=== PATIENT | female | born 1995 | race Hispanic/Latino ===

== ENCOUNTER 2017-10-15 15:27 | Emergency (ER) | payer OTHER, MEDICAID, SELFPAY ==
[2017-10-15 15:33] VITALS: BP 132/77; PULSE 82; RESP 20; TEMP 37; O2SAT 99
--- NOTE | 2017-10-15 15:34 | DI.RAD.S_ITS ---
PROCEDURE: XR CHEST 2V INDICATIONS: anterior chest pain TECHNIQUE: 2 views of the chest were acquired. COMPARISON: None. FINDINGS: Surgical changes and devices: None. Lungs and pleura: No pleural effusions or pneumothorax. Lungs are clear. Mediastinum: Mediastinal contours are normal. Heart size is normal. Bones and chest wall: No suspicious bony abnormalities. Soft tissues appear unremarkable. IMPRESSION: No acute cardiopulmonary pathology. Dictated by: Julio Carpenter M.D. on 10/15/2017 at 15:58 Approved by: Julio Carpenter M.D. on 10/15/2017 at 15:59
--- NOTE | 2017-10-15 15:55 | ED.CHESTPAIN ---
HPI - Chest Pain General Chief Complaint: Chest Pain Stated Complaint: CHEST DISCOMFORT Time Seen by Provider: 10/15/17 15:41 Source: patient and family ( sister) Mode of arrival: ambulatory Limitations: no limitations History of Present Illness HPI narrative: This is a 21-year-old female comes to the emergency department with complaint of chest pain in the left upper chest that some has found around for about a week. She states that it goes around to the back. She states that she noticed a little bit of wheezing last night or squeaking when she laid down for bed. She states otherwise Um she is not having much pain at this time. It sort of feels like someone is poking her. She states that she gets irritated or annoyed with someone that seems to exacerbate it. No fevers, no cold cough or congestion symptoms. No shortness of breath or dyspnea. She is not having any issues with exertion and dyspnea. . She is not on any contraceptives or had any long-term travel. MD complaint: chest pain Onset (ago): day(s) Duration: intermittent Severity: mild Quality: other Pain radiation: back Relieving factors: rest Exacerbating factors: other (being irritated.) Treatments prior to arrival chest pain: none Related Data On Oral Contraceptives: No Review of Systems Review of Systems All systems reviewed & are unremarkable except as noted in HPI and below Constitutional Denies chills, Denies fatigue, Denies fever(s), Denies lethargy and Denies weakness Cardiovascular Reports chest pain, Denies diaphoresis, Denies syncope, Denies rapid heart rate, Denies irregular heart rhythm, Denies lightheadedness, Denies radiating jaw, neck or arm pain, Denies palpitations, Denies dyspnea and Denies orthopnea Respiratory Denies change in phlegm color, Denies chest congestion, Denies cough, Denies hemoptysis, Denies dyspnea and Reports other (squeaking with breathing last night.) Gastrointestinal Gastrointestinal: Denies abdominal pain, Denies change in bowel habits, Denies diarrhea, Denies nausea and Denies vomiting Genitourinary Denies hematuria, Denies flank pain, Denies urinary incontinence and Denies urinary urgency Integumentary/Breasts Denies rash Neurologic Denies syncope and Denies weakness Endocrine Denies fatigue and Denies palpitations PFSH Family History Mother Diabetes mellitus Thyroid disease Social History Smoking Status: Never smoker alcohol intake: never substance use type: does not use Exam Initial Vital Signs Initial Vital Signs: Vital Signs Temperature 98.6 F 10/15/17 15:33 Pulse Rate 82 10/15/17 15:33 Respiratory Rate 20 10/15/17 15:33 Blood Pressure 132/77 10/15/17 15:33 Pulse Oximetry 99 10/15/17 15:33 Const General: cooperative, healthy appearing, comfortable, well developed and well groomed Nutritional Appearance: well nourished Orientation: alert, awake, oriented x3 and not confused HENMT Head: normal to inspection, normocephalic and atraumatic Nose: external nose normal Face and sinus: normal facial exam Mouth: mucous membranes abnormal Neck Neck: normal visual inspection, trachea midline, No lymphadenopathy, No midline deformity and No JVD Lymphatic: No lymphedema Chest Chest: normal inspection of the chest Resp Effort & Inspection: normal respiratory effort, able to speak in complete sentences, no respiratory distress and no use of accessory muscles Auscultation: clear to auscultation bilaterally, no rales, no rhonchi and no wheezes Cardio Rate: regular rate Rhythm: regular rhythm Heart Sounds: no click, no gallops, no murmurs and no rubs Pulses: normal peripheral pulses GI Inspection: non-distended Palpation: soft, no hepatosplenomegaly, No guarding, No pulsatile mass and No tender Auscultation: normal bowel sounds Skin General: No no rashes or lesions noted and dry skin Extrem Right lower extremity: no edema Left lower extremity: no edema Scores Wells' Criteria for PE Clinical signs and symptoms of PE: No PE is #1 Dx or equally likely: No Heart rate > 100: No Immobilization at least 3 days or surg in previous 4 weeks: No History of PE or DVT: No Hemoptysis: No Malignancy w/Treatment within 6 months or palliative: No Wells' PE Score total: 0 Course Orders Ordered: ED Orders 10/15/17 15:34 Chest [XR chest 2V] Stat 10/15/17 15:35 EKG-12 Lead Stat Vital Signs - 8 hr 10/15/17 15:33 10/15/17 16:31 Temperature 98.6 F Pulse Rate 82 60 Respiratory Rate 20 15 Blood Pressure 132/77 Blood Pressure [Left Arm] 110/68 Pulse Oximetry 99 100 MDM - Chest Pain Differential Diagnosis Likely pneumothorax, atypical chest pain, costochondritis, chest pain and other (reactive airway) Imaging Data Chest x-ray: Radiologist's impression: Patient: Margret Stiles SMR#: [id number] : 1995Acct:[id number] Age/Sex: 21 / FDate of Service: 10/15/17 Loc: ED Accession Number: [id number] Procedure: XR chest 2V Ordering Provider: Augusta Norris D.O. PROCEDURE: XR CHEST 2V INDICATIONS: anterior chest pain TECHNIQUE: 2 views of the chest were acquired. COMPARISON: None. FINDINGS: Surgical changes and devices: None. Lungs and pleura: No pleural effusions or pneumothorax. Lungs are clear. Mediastinum: Mediastinal contours are normal. Heart size is normal. Bones and chest wall: No suspicious bony abnormalities. Soft tissues appear unremarkable. IMPRESSION: No acute cardiopulmonary pathology. Dictated by: Julio Carpenter M.D. on 10/15/2017 at 15:58 Approved by: Julio Carpenter M.D. on 10/15/2017 at 15:59 ECG Data Attestation: I personally reviewed and interpreted this ECG as follows: Prior ECG tracings: not available for review Interpretation: Sinus rhythm no ST ST elevation or depression. Rate of 71, IA 132, QRS of 93 and QTC of 374. [facility] Narrative Medical decision making narrative: a 21-year-old female who comes in with complaint of mild chest pain patient has not been having any dyspnea or exertional symptoms. EKG does not show any acute findings. Chest x-ray was evaluated and also does not show any acute findings. Patient defers any pain medication. She has family history of diabetes thyroid issues. She does not have any current risk factors for PE and her PERC score is 0. Patient did have what sounded like possibly some reactive airway with some wheezing yesterday but has not had any since is not having any shortness of breath. She does not have any changes such as pneumothorax or signs of infection on her chest x-ray. EKG shows no acute changes in her risk for cardiac event is quite low based on her risk factors. Discharge Plan Departure Patient Disposition: Home Clinical Impression: Atypical chest pain Discharge Date/Time: 10/15/17 16:38 Interventions: ED Discharge Assessment Last Done: 10/15/17 16:38 Instructions: DI for Atypical Chest Pain Activity Restrictions/Additional Instructions: Follow-up with primary care the next 3-5 days if your symptoms are not improving. You may take ibuprofen up to 600 mg every 6 hr or Tylenol 1000 mg every 8 hr as needed for pain. Return to the emergency department if you're having increasing chest pain, difficulty with breathing or syncope or passing out.
--- NOTE | 2017-10-15 16:01 | ED_ITS ---
HPI - Chest Pain General Chief Complaint: Chest Pain Stated Complaint: CHEST DISCOMFORT Time Seen by Provider: 10/15/17 15:41 Source: patient and family ( sister) Mode of arrival: ambulatory Limitations: no limitations History of Present Illness HPI narrative: This is a 21-year-old female comes to the emergency department with complaint of chest pain in the left upper chest that some has found around for about a week. She states that it goes around to the back. She states that she noticed a little bit of wheezing last night or squeaking when she laid down for bed. She states otherwise Um she is not having much pain at this time. It sort of feels like someone is poking her. She states that she gets irritated or annoyed with someone that seems to exacerbate it. No fevers, no cold cough or congestion symptoms. No shortness of breath or dyspnea. She is not having any issues with exertion and dyspnea. . She is not on any contraceptives or had any long-term travel. MD complaint: chest pain Onset (ago): day(s) Duration: intermittent Severity: mild Quality: other Pain radiation: back Relieving factors: rest Exacerbating factors: other (being irritated.) Treatments prior to arrival chest pain: none Related Data On Oral Contraceptives: No Review of Systems Review of Systems All systems reviewed & are unremarkable except as noted in HPI and below Constitutional Denies chills, Denies fatigue, Denies fever(s), Denies lethargy and Denies weakness Cardiovascular Reports chest pain, Denies diaphoresis, Denies syncope, Denies rapid heart rate , Denies irregular heart rhythm, Denies lightheadedness, Denies radiating jaw, neck or arm pain, Denies palpitations, Denies dyspnea and Denies orthopnea Respiratory Denies change in phlegm color, Denies chest congestion, Denies cough, Denies hemoptysis, Denies dyspnea and Reports other (squeaking with breathing last night.) Gastrointestinal Gastrointestinal: Denies abdominal pain, Denies change in bowel habits, Denies diarrhea, Denies nausea and Denies vomiting Genitourinary Denies hematuria, Denies flank pain, Denies urinary incontinence and Denies urinary urgency Integumentary/Breasts Denies rash Neurologic Denies syncope and Denies weakness Endocrine Denies fatigue and Denies palpitations PFSH Family History Mother Diabetes mellitus Thyroid disease Social History Smoking Status: Never smoker alcohol intake: never substance use type: does not use Exam Initial Vital Signs Initial Vital Signs: Vital Signs Temperature 98.6 F 10/15/17 15:33 Pulse Rate 82 10/15/17 15:33 Respiratory Rate 20 10/15/17 15:33 Blood Pressure 132/77 10/15/17 15:33 Pulse Oximetry 99 10/15/17 15:33 Const General: cooperative, healthy appearing, comfortable, well developed and well groomed Nutritional Appearance: well nourished Orientation: alert, awake, oriented x3 and not confused HENMT Head: normal to inspection, normocephalic and atraumatic Nose: external nose normal Face and sinus: normal facial exam Mouth: mucous membranes abnormal Neck Neck: normal visual inspection, trachea midline, No lymphadenopathy, No midline deformity and No JVD Lymphatic: No lymphedema Chest Chest: normal inspection of the chest Resp Effort & Inspection: normal respiratory effort, able to speak in complete sentences, no respiratory distress and no use of accessory muscles Auscultation: clear to auscultation bilaterally, no rales, no rhonchi and no wheezes Cardio Rate: regular rate Rhythm: regular rhythm Heart Sounds: no click, no gallops, no murmurs and no rubs Pulses: normal peripheral pulses GI Inspection: non-distended Palpation: soft, no hepatosplenomegaly, No guarding, No pulsatile mass and No tender Auscultation: normal bowel sounds Skin General: No no rashes or lesions noted and dry skin Extrem Right lower extremity: no edema Left lower extremity: no edema Scores Wells' Criteria for PE Clinical signs and symptoms of PE: No PE is #1 Dx or equally likely: No Heart rate > 100: No Immobilization at least 3 days or surg in previous 4 weeks: No History of PE or DVT: No Hemoptysis: No Malignancy w/Treatment within 6 months or palliative: No Wells' PE Score total: 0 Course Orders Ordered: ED Orders 10/15/17 15:34 Chest [XR chest 2V] Stat 10/15/17 15:35 EKG-12 Lead Stat Vital Signs - 8 hr 10/15/17 15:33 10/15/17 16:31 Temperature 98.6 F Pulse Rate 82 60 Respiratory Rate 20 15 Blood Pressure 132/77 Blood Pressure [Left Arm] 110/68 Pulse Oximetry 99 100 MDM - Chest Pain Differential Diagnosis Likely pneumothorax, atypical chest pain, costochondritis, chest pain and other (reactive airway) Imaging Data Chest x-ray: Radiologist's impression: Patient: Margret Stiles SMR#: [id number] : 1995Acct:[id number] Age/Sex: 21 / FDate of Service: 10/15/17 Loc: ED Accession Number: [id number] Procedure: XR chest 2V Ordering Provider: Augusta Norris D.O. PROCEDURE: XR CHEST 2V INDICATIONS: anterior chest pain TECHNIQUE: 2 views of the chest were acquired. COMPARISON: None. FINDINGS: Surgical changes and devices: None. Lungs and pleura: No pleural effusions or pneumothorax. Lungs are clear. Mediastinum: Mediastinal contours are normal. Heart size is normal. Bones and chest wall: No suspicious bony abnormalities. Soft tissues appear unremarkable. IMPRESSION: No acute cardiopulmonary pathology. Dictated by: Julio Carpenter M.D. on 10/15/2017 at 15:58 Approved by: Julio Carpenter M.D. on 10/15/2017 at 15:59 ECG Data Attestation: I personally reviewed and interpreted this ECG as follows: Prior ECG tracings: not available for review Interpretation: Sinus rhythm no ST ST elevation or depression. Rate of 71, ID 132, QRS of 93 and QTC of 374. [facility] Narrative Medical decision making narrative: a 21-year-old female who comes in with complaint of mild chest pain patient has not been having any dyspnea or exertional symptoms. EKG does not show any acute findings. Chest x-ray was evaluated and also does not show any acute findings. Patient defers any pain medication. She has family history of diabetes thyroid issues. She does not have any current risk factors for PE and her PERC score is 0. Patient did have what sounded like possibly some reactive airway with some wheezing yesterday but has not had any since is not having any shortness of breath. She does not have any changes such as pneumothorax or signs of infection on her chest x-ray. EKG shows no acute changes in her risk for cardiac event is quite low based on her risk factors. Discharge Plan Departure Patient Disposition: Home Clinical Impression: Atypical chest pain Discharge Date/Time: 10/15/17 16:38 Interventions: ED Discharge Assessment Last Done: 10/15/17 16:38 Instructions: DI for Atypical Chest Pain Activity Restrictions/Additional Instructions: Follow-up with primary care the next 3-5 days if your symptoms are not improving. You may take ibuprofen up to 600 mg every 6 hr or Tylenol 1000 mg every 8 hr as needed for pain. Return to the emergency department if you're having increasing chest pain, difficulty with breathing or syncope or passing out.
[2017-10-15 16:31] VITALS: BP 110/68; PULSE 60; RESP 15; O2SAT 100
== END 2017-10-15 16:38 | disposition home or self-care (01) ==
PROVIDERS: Emergency Provider Emergency Medicine
DX: R07.89 Other chest pain (principal)
CPT/HCPCS: 71046; 93005; 93010; 99282; 99283

== ENCOUNTER 2018-09-22 10:15 | Emergency (ER) | payer OTHER, MEDICAID, SELFPAY ==
[2018-09-22 10:26] VITALS: BP 134/88; PULSE 75; RESP 13; TEMP 37; O2SAT 98
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
[2018-09-22] MEDS: TET,DIPH,PERTUSS(ACELL),VAC/PF 0.5 ML SYRINGE IM (10:33)
== END 2018-09-22 10:42 | disposition home or self-care (01) ==
PROVIDERS: Emergency Provider Emergency Medicine
DX: T23.002A Burn of unspecified degree of left hand, unspecified site, initial encounter (principal); X10.0XXA Contact with hot drinks, initial encounter; Y99.0 Civilian activity done for income or pay; Z23 Encounter for immunization
CPT/HCPCS: 90471; 99282; 99283; 90715

== ENCOUNTER 2020-07-29 20:53 | Emergency (ER) | payer OTHER, MEDICAID, SELFPAY ==
[2020-07-29] VITALS (8 sets, daily range): BP systolic 100–128; BP diastolic 59–73; PULSE 62–78; RESP 13–25; TEMP 36.2; O2SAT 98–100; BMI 42.5
--- NOTE | 2020-07-29 21:35 | DI.RAD.S_ITS ---
PROCEDURE: XR CHEST 2V INDICATIONS: intermittnnt chest pain TECHNIQUE: 2 views of the chest were acquired. COMPARISON: [facility], , XR CHEST 2V, 10/15/2017, 15:13. FINDINGS: Surgical changes and devices: None. Lungs and pleura: Lungs are clear. No pleural effusions or pneumothorax. Mediastinum: Mediastinal contours are normal. Heart size is normal. Bones and chest wall: No suspicious bony abnormalities. Soft tissues appear unremarkable. IMPRESSION: No acute disease. Dictated by: Angus Barbour M.D. on 07/29/2020 at 22:06 Approved by: Angus Barbour M.D. on 07/29/2020 at 22:06
--- NOTE | 2020-07-29 23:17 | ED.CHESTPAIN ---
HPI - Chest Pain General Chief Complaint: Chest Pain Stated Complaint: chest tightness Time Seen by Provider: 07/29/20 23:08 Source: patient Mode of arrival: Ambulatory Limitations: no limitations History of Present Illness HPI narrative: Patient is a 24-year-old female who presents with chest discomfort off and on throughout the day. 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 She started noticing some chest discomfort which was worse with movement and deep breaths. She denies any shortness of breath. She can not pinpoint exactly where it is. She has not taken anything for pain. She denies any fever chills or cough. She has not gotten her COVID vaccine but is also concerned about that. She denies any shortness of breath or recent travel MD complaint: chest pain Onset (ago): day(s) (1) Duration: intermittent Onset: during rest and during exertion Relieving factors: rest, leaning forward and remaining still Exacerbating factors: inspiration, palpation and movement Related Data Allergies Allergy/AdvReac Type Severity Reaction Status Date / Time No Known Drug Allergies Allergy Verified 09/22/18 10:30 Review of Systems Review of Systems Narrative: GENERAL: Denies chills, fatigue, malaise, fever, sweats, travel HEENT: Denies sinus pain, ear pain, sore throat, difficulty swallowing, neck pain RESPIRATORY: Denies dyspnea, cough, wheezing, hemoptysis, sputum. CARDIOVASCULAR: See HPI GASTROINTESTINAL: Denies nausea, vomiting, abdominal pain, diarrhea, constipation, melena. : Denies dysuria, frequency, incontinence, hematuria, urinary retention, flank pain. MUSCULOSKELETAL: Denies weakness, joint pain, or bony pain SKIN: No rash, no erythema, no pruritus NEUROLOGIC: Denies weakness, dizziness, headache, numbness, change in speech, confusion PSYCHIATRIC: No concerning psychosocial issues. 12 point review of systems is negative except for those stated above and HPI Patient History Family History Mother Diabetes mellitus Thyroid disease Social History Smoking Status: Never smoker alcohol intake: never substance use type: does not use Smoking Status: Never smoker Substance Use Type: does not use Exam Initial Vital Signs Initial Vital Signs: Vital Signs Temperature 97.2 F L 07/29/20 20:56 Pulse Rate 78 07/29/20 20:56 Respiratory Rate 17 07/29/20 20:56 Blood Pressure 128/73 07/29/20 20:56 Pulse Oximetry 100 07/29/20 20:56 GENERAL: Alert well-appearing 24-year-old female with BMI 42 and in no acute distress. HEENT: Head atraumatic,EOMI, pupils reactive, face symmetric, moist mucous membranes CARDIOVASCULAR: Regular rate and rhythm without murmurs, rubs or gallops. Mild pain and discomfort with palpation to chest difficult to pinpoint 1 specific area RESPIRATORY: Breath sounds equal bilaterally, no wheezes rales or rhonchi. ABDOMEN: Soft, nontender. Normoactive bowel sounds all 4 quadrants. No guarding or rebound. EXTREMITIES: Normal range of motion, no clubbing or edema. Neurovascularly intact NEUROLOGICAL: Alert and oriented x4.Normal gait and speech. Cranial nerves II through XII grossly intact. SKIN: Warm, dry, no laceration, no petechiae, no rashes or lesions. Scores PERC Score Age greater than or equal to 50 years: No Heart rate greater than or equal to 100 bpm: No Room Air O2 Sat less than 95%: No Unilateral leg swelling: No Recent trauma or surgery: No Hemoptysis: No Prior PE or DVT: No Hormone Use: No Total PERC Score: 0 Wells' Criteria for PE Clinical signs and symptoms of DVT: No PE is #1 Dx or equally likely: No Heart rate > 100: No Immobilization at least 3 days or surg in previous 4 weeks: No History of PE or DVT: No Hemoptysis: No Malignancy w/Treatment within 6 months or palliative: No Wells' PE Score total: 0 Course Orders Ordered: ED Orders 07/29/20 21:35 XR chest 2V Stat 07/29/20 23:17 COVID19 -Nasal swab/Pre-Proc Stat Discontinued Medications Ibuprofen (Ibuprofen 400 Mg Tablet) 800 mg PO NOW ONE Stop: 07/29/20 23:17 Last Admin: 07/29/20 23:21 Dose: 800 mg Documented by: HUSSEIN Vital Signs Vital signs: Vital Signs - 8 hr 07/29/20 21:18 07/29/20 21:20 07/29/20 21:30 Pulse Rate 71 66 66 Respiratory Rate 18 24 13 Blood Pressure 100/66 100/66 Pulse Oximetry 98 98 98 07/29/20 22:00 07/29/20 22:30 07/29/20 23:00 Pulse Rate 69 65 62 Respiratory Rate 25 H 24 17 Blood Pressure 105/59 L Pulse Oximetry 100 100 99 07/29/20 23:30 07/30/20 00:00 Pulse Rate 64 68 Respiratory Rate 23 19 Blood Pressure Pulse Oximetry 99 98 MDM - Chest Pain Lab Data Attestation: I reviewed the patient's lab results. Labs: Lab Results 07/29/20 Range/Units 23:17 SARS-CoV-2 (PCR) Negative (Negative) Imaging Data Chest x-ray: Radiologist's Impression: PROCEDURE: XR CHEST 2V INDICATIONS: intermittnnt chest pain TECHNIQUE: 2 views of the chest were acquired. COMPARISON: [facility], , XR CHEST 2V, 10/15/2017, 15:13. FINDINGS: Surgical changes and devices: None. Lungs and pleura: Lungs are clear. No pleural effusions or pneumothorax. Mediastinum: Mediastinal contours are normal. Heart size is normal. Bones and chest wall: No suspicious bony abnormalities. Soft tissues appear unremarkable. IMPRESSION: No acute disease. Dictated by: Angus Barbour M.D. on 07/29/2020 at 22:06 ECG Data Attestation: I personally reviewed and interpreted this ECG as follows: Prior ECG tracings: available for review Interpretation: Normal sinus rhythm rate 60 8 p.r. interval 136 QRS [address] changes or T-wave inversions similar to previous EKG [facility] Narrative Medical decision making narrative: Patient's pain is been ongoing all status symptoms worth with movement and breathing. Chest x-ray and EKG are within normal limits. No sign of pericarditis on EKG. Possible costochondritis but it is not pinpoint. Her symptoms are not consistent with cardiac etiology and she is low risk for pulmonary embolism. She is given Motrin in the emergency department and is feeling slightly better Discharge Plan Departure Patient Disposition: Home Clinical Impression: Atypical chest pain Instructions: DI for Atypical Chest Pain Activity Restrictions/Additional Instructions: *You have been diagnosed with atypical chest pain *What to do: At this time unclear what is causing your chest discomfort. However I recommend getting some sleep is and resting. I suspect he may have pulled or done something. He may also try heat or ice. Your COVID is negative *Continue to take medications as directed Ibuprofen 600 mg every 6 hours if needed for [id number] pain *Follow up with your primary care provider in 2-3 days *Return to ER if you should have increasing chest pain, shortness of breath or any new, worsening or concerning symptoms
[2020-07-29] MEDS: IBUPROFEN 400 MG TABLET 800 MG PO (23:21)
[2020-07-29 23:39] LABS: COVID19 -Nasal RAPID Negative (Negative)
[2020-07-30] VITALS: PULSE 68; RESP 19; O2SAT 98
== END 2020-07-30 00:08 | disposition home or self-care (01) ==
PROVIDERS: Emergency Provider Emergency Medicine
DX: R07.89 Other chest pain (principal); Z20.822 Contact with and (suspected) exposure to COVID-19
CPT/HCPCS: 71046; 87635; 93005; 93010; 99284; C9803

== ENCOUNTER 2020-11-08 20:21 | Emergency (ER) | payer OTHER, MEDICAID, SELFPAY ==
[2020-11-08 20:49] VITALS: BP 143/78; PULSE 96; RESP 17; TEMP 36.6; O2SAT 99
--- NOTE | 2020-11-08 20:53 | DI.RAD.S_ITS ---
PROCEDURE: XR HAND LT MIN 3V INDICATIONS: injury TECHNIQUE: 3 views of the hand(s) acquired. COMPARISON: None. FINDINGS: Bones: No fractures or dislocations. Carpal bones are normally aligned. No suspicious bony lesions. Soft tissues: No suspicious soft tissue calcifications. IMPRESSION: No evidence acute bony abnormality of the left hand. If clinical suspicion and/or symptoms persist, further assessment with repeat plain films, or advanced imaging (e.g., CT, MRI, or bone scan) may be helpful for further assessment. Dictated by: Thom Holm M.D. on 11/08/2020 at 21:30 Approved by: Thom Holm M.D. on 11/08/2020 at 21:31
--- NOTE | 2020-11-09 02:44 | ED_ITS ---
HPI - Extremity Injury (Upper) General Chief Complaint: Extremity Injury, Upper Stated Complaint: LEFT HAND MIDDLE FINGER Time Seen by Provider: 11/09/20 02:42 Source: patient Mode of arrival: Ambulatory Limitations: no limitations History of Present Illness HPI narrative: This is a 24-year-old female comes with complaint of pain of the middle interphalangeal joint on her middle finger on her left hand. Patient s tates about 2 weeks she was popping her fingers hyperextending them which she had pain at that location. She has continued to have an achy pain at that joint which is localized area. She has not had any warmth, erythema swelling noted she has full range of motion but does have some increased discomfort with movement. She states if she squeezes area the pain will radiate into her finger but is not normally. She denies any other injuries. She has not had similar symptoms in the past. She has not had any other injuries. She was recently started on Zoloft and has been taking that. She does not take any other daily medications denies any other medical issues. No allergies to medications. She has not been taking any ibuprofen or Tylenol because she was concerned it might interact with her medication. She is right-hand dominant. Related Data Home Medications Medication Instructions Recorded Confirmed sertraline 100 mg tablet 100 mg PO DAILY 11/08/20 11/08/20 Allergies Allergy/AdvReac Type Severity Reaction Status Date / Time No Known Drug Allergies Allergy Verified 09/22/18 10:30 Review of Systems Review of Systems ROS Unobtainable: All systems reviewed & are unremarkable except as noted in HPI and below Patient History Family History Mother Diabetes mellitus Thyroid disease Social History Smoking Status: Never smoker alcohol intake: never substance use type: does not use Smoking Status: Never smoker Substance Use Type: does not use Exam Narrative Exam Narrative: GENERAL: Alert and oriented x three, female in mild distress. HEENT: Head normocephalic, atraumatic, EOMI, pupils reactive, face symmetric, moist mucous membranes NECK: Supple, full range of motion EXTREMITIES: Normal range of motion, no clubbing or edema. Neurovascularly intact. Patient has no bony tenderness except for very slight over the middle interphalangeal joint of the 3rd finger on the left hand. There is no warmth, erythema or swelling appreciated. Patient has full range of motion with active and passive. She does not have any joint changes in comparison, no deformity. Cap refills less than 2 seconds in all 5 fingers. Normal sensation throughout. 2+ radial pulse. NEUROLOGICAL: Cranial nerves II through XII grossly intact. Moving all extremities SKIN: Warm, dry, no petechiae, no rashes or lesions. Initial Vital Signs Initial Vital Signs: Vital Signs Temperature 98 F 11/08/20 20:49 Pulse Rate 96 H 11/08/20 20:49 Respiratory Rate 17 11/08/20 20:49 Blood Pressure 143/78 H 11/08/20 20:49 Pulse Oximetry 99 11/08/20 20:49 Course Orders Ordered: ED Orders 11/08/20 20:53 XR hand LT min 3V Stat Vital Signs Vital signs: Vital Signs - 8 hr 11/09/20 03:02 Pulse Rate 95 H Respiratory Rate 17 Blood Pressure 115/74 Pulse Oximetry 98 MDM - Extremity Injury (Upper) Imaging Data Extremity x-ray #1: Radiologist's Impression: [address] [address] XRay Report Signed Patient: Margret Stiles MR#: [id number] : 1995 Acct:[id number] Age/Sex: 24 / F Date of Service: 11/08/20 Loc: ED Accession Number: [id number] ?? Procedure: XR hand LT min 3V Ordering Provider: Augusta Norris D.O. PROCEDURE:? XR HAND LT MIN 3V ? INDICATIONS:? injury ? TECHNIQUE:? 3 views of the hand(s) acquired.? ? COMPARISON:? None. ? FINDINGS:? ? Bones:? No fractures or dislocations.? Carpal bones are normally aligned.? No suspicious bony lesions.? ? Soft tissues:? No suspicious soft tissue calcifications.? ? ? IMPRESSION:? No evidence acute bony abnormality of the left hand. ? If clinical suspicion and/or symptoms persist, further assessment with repeat plain films, or advanced imaging (e.g., CT, MRI, or bone scan) may be helpful for further assessment. ? Dictated by: Thom Holm M.D. on 11/08/2020 at 21:30 ? ? Approved by: Thom Holm M.D. on 11/08/2020 at 21:31?? Discharge Plan Departure Patient Disposition: Home Clinical Impression: Finger pain, left Activity Restrictions/Additional Instructions: Follow-up with your physician for recheck if continue to have symptoms. I would recommend Tylenol or ibuprofen as needed. You can sukumar tape your finger but if it seems to be doing well you do not have to do this. Your x-ray imaging today does not show any fractures, breaks obvious avulsions to the area. You have likely injured the tendons or ligaments surrounding that area. Please return for warmth, redness, swelling, new numbness, tingling or weakness or fingers other new or concerning symptoms. Prescriptions: No Action sertraline 100 mg tablet 100 mg PO DAILY RF: 0
[2020-11-09 03:02] VITALS: BP 115/74; PULSE 95; RESP 17; O2SAT 98
== END 2020-11-09 03:03 | disposition home or self-care (01) ==
PROVIDERS: Emergency Provider Emergency Medicine
DX: M79.645 Pain in left finger(s) (principal)
CPT/HCPCS: 73130; 99281; 99283